=== PATIENT | male | born 1980 | race Hispanic/Latino ===

== ENCOUNTER 2018-06-27 14:05 | Emergency (ER) | payer BC ==
--- NOTE | 2018-06-27 15:26 | RAD ---
Date of service: 06/27/2018 HISTORY: Wheezing and shortness of breath COMPARISON: No prior. TECHNIQUE: Chest PA and lateral FINDINGS: LINES AND TUBES: None. LUNG AND PLEURA: The lungs are well inflated and clear. No pleural effusion or pneumothorax. HEART AND MEDIASTINUM: The heart is not enlarged. No aortic atherosclerotic calcification present. The hilar and mediastinal contours are within normal limits. SKELETAL STRUCTURES: The bony structures are within normal limits for the patient's age. VISUALIZED UPPER ABDOMEN: Normal. OTHER FINDINGS: None. IMPRESSION: No active pulmonary disease.
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
[2018-06-27 15:39] LABS: BASO # 0.1 K/uL (0.0-0.2); BASO % 0.8 % (0.0-2.0); EOS # 0.3 K/uL (0.0-0.7); EOS % 3.3 % (0.0-4.0); HEMOGLOBIN 14.1 g/dL (12.0-18.0); LYMPH # 1.4 K/uL (1.0-4.3); LYMPH % 18.6 % (20.0-40.0); MEAN CELL VOLUME 91.1 fl (80.0-94.0); MEAN CORPUSCULAR HEMOGLOBIN 31.2 pg (27.0-31.0); MEAN CORPUSCULAR HGB CONC 34.2 g/dL (33.0-37.0); MEAN PLATELET VOLUME 7.7 fl (7.2-11.7); MONO # 0.6 K/uL (0.0-0.8); MONO % 8.3 % (0.0-10.0); NEUT # 5.2 K/uL (1.8-7.0); NRBC % 0.2 % (0.0-0.0); RBC 4.53 Mil/uL (4.40-5.90); RED CELL DISTRIBUTION WIDTH 13.2 % (11.5-14.5); WHITE BLOOD COUNT 7.5 K/uL (4.8-10.8)
[2018-06-27 15:45] LABS: INR 1.1
[2018-06-27 15:47] LABS: PARTIAL THROMBOPLASTIN TIME 30.4 Seconds (25.6-37.1)
[2018-06-27 16:05] LABS: ALB/GLOB RATIO 1.2 (1.0-2.1); ALBUMIN 4.2 g/dL (3.5-5.0); ALT/SGPT 40 U/L (21-72); AST/SGOT 34 U/L (17-59); BLOOD UREA NITROGEN 14 mg/dl (9-20); CALCIUM 9.4 mg/dL (8.4-10.2); GFR NON-AFRICAN AMERICAN > 60
[2018-06-27 16:15] LABS: B-TYPE NATRIURETIC PEPTIDE 21.6 pg/ml (0-450)
[2018-06-27 16:51] LABS: D DIMER < 200 ng/mlDDU (0-230)
[2018-06-27 18:51] VITALS: BP 119/71; PULSE 91; RESP 18; TEMP 98.2; O2SAT 96
--- NOTE | 2018-06-28 06:51 | CARD ---
APPROVED REPORT Date of service: 06/27/2018 EKG Measurement Heart [id number] <Conclusion> Normal sinus rhythm Normal ECG
== END 2018-06-27 17:30 | disposition home or self-care (01) ==
LOC: H.ER 14:05
DX: R55 Syncope and collapse (principal); F17.200 Nicotine dependence, unspecified, uncomplicated; Z82.49 Family history of ischemic heart disease and other diseases of the circulatory system; Z98.890 Other specified postprocedural states